=== PATIENT | male | born 1990 | race African-American/Black ===

== ENCOUNTER 2016-11-10 12:21 | Emergency (ER) | payer MEDICAID ==
[~2016-11-10] VITALS: Ht 165.1 cm; Wt 58.1 kg
[2016-11-10 12:43] VITALS: BP 130/87
== END 2016-11-10 18:15 | disposition home or self-care (01) ==
LOC: ED 15:35
DX: S63.521A Sprain of radiocarpal joint of right wrist, initial encounter (principal); W22.8XXA Striking against or struck by other objects, initial encounter; Y93.89 Activity, other specified; Y92.89 Other specified places as the place of occurrence of the external cause; Y99.8 Other external cause status
CPT/HCPCS: 99284

== ENCOUNTER 2019-05-29 13:58 | Emergency (ER) | payer MEDICAID ==
[~2019-05-29] VITALS: Ht 165.1 cm; Wt 56.1 kg
[2019-05-29 14:18] VITALS: BP 142/88
[2019-05-29] MEDS ORDERED: KETOROLAC 30 MG/1 ML IM ONE (15:30)
--- NOTE | 2019-05-29 15:38 | NUR ---
Patient/Caregiver given discharge instructions and they have confirmed that they understand the instructions. Patient ambulatory with steady gait. PT LEFT WITH ALL PERSONAL BELONGINGS.
== END 2019-05-29 16:20 | disposition home or self-care (01) ==
LOC: ED 15:44
DX: K02.9 Dental caries, unspecified (principal); K08.89 Other specified disorders of teeth and supporting structures; Z72.9 Problem related to lifestyle, unspecified; F17.210 Nicotine dependence, cigarettes, uncomplicated
CPT/HCPCS: 99283; 99406